=== PATIENT | female | born 1975 | race Caucasian/White ===

== ENCOUNTER 2018-10-02 11:12 | Emergency (ER) | payer SELFPAY ==
[2018-10-02 11:17] VITALS: RESP 18
--- NOTE | 2018-10-02 13:32 | ED PDOC ---
HPI: Hypertension/Hypotension Time Seen by Provider: 10/02/18 11:48 Chief Complaint (Nursing): High Blood Pressure Chief Complaint (Provider): my blood pressure was high History Per: [employer] (Conner from [employer]) History/Exam Limitations: no limitations Onset/Duration Of Symptoms: Days (1) Current Symptoms Are (Timing): Better Associated Symptoms: Dizziness. denies: Chest Pain, Dyspnea, Blurred Vision, Focal Weakness, Headache Quality Of Symptoms: Other (dizzy) Severity: Mild Exacerbating Factor(s): Pos: Recently Missed Doses Of Medication Additional Complaint(s): 43yo female hx ?HTN on enalapril but does not take regularly, rather only takes "when I have symptoms" presents now w mild dizziness, checked blood pressure on home device reading approx 190/105, took enalapril 10mg after and BP gradually improved. Denies headache, chest pain, SOB, edema, change urination or recent illness. Is also out of BP meds after today so requesting refill. Past Medical History Reviewed: Historical Data, Nursing Documentation, Vital Signs Vital Signs: Last Vital Signs Temp 98.5 F 10/02/18 11:16 Pulse 80 10/02/18 11:33 Resp 18 10/02/18 11:33 BP 154/99 H 10/02/18 11:33 Pulse Ox 99 10/02/18 11:33 - Medical History PMH: HTN Denies: Chronic Kidney Disease - Family History Family History: States: Unknown Family Hx - Social History Current smoker - smoking cessation education provided: No - Home Medications Home Medications: Ambulatory Orders Medication Instructions Recorded Ibuprofen [Motrin] 1 tab PO Q8 PRN #21 tab 11/22/15 Enalapril Maleate [Vasotec] 10 mg PO DAILY #15 tab 10/02/18 - Allergies Allergies/Adverse Reactions: Allergies Allergy/AdvReac Type Severity Reaction Status Date / Time No Known Allergies Allergy Verified 10/02/18 11:37 Review of Systems Constitutional: Negative for: Fever Cardiovascular: Negative for: Chest Pain, Palpitations Respiratory: Negative for: Cough, Shortness of Breath Gastrointestinal: Negative for: Vomiting Genitourinary Female: Negative for: Dysuria, Hematuria Musculoskeletal: Negative for: Neck Pain, Back Pain Skin: Negative for: Rash, Lesions Neurological: Positive for: Dizziness. Negative for: Weakness, Numbness, Change in Speech, Altered Mental Status Psych: Negative for: Psychosis Physical Exam - Reviewed Nursing Documentation Reviewed: Yes Vital Signs Reviewed: Yes - Physical Exam Appears: Positive for: Well, Non-toxic, No Acute Distress Head Exam: Positive for: ATRAUMATIC, NORMAL INSPECTION, NORMOCEPHALIC Skin: Positive for: Normal Color, Warm, DRY Eye Exam: Positive for: EOMI, Normal appearance, PERRL ENT: Positive for: Normal ENT Inspection Neck: Positive for: Normal, Painless ROM Cardiovascular/Chest: Positive for: Regular Rate, Rhythm Respiratory: Positive for: CNT, Normal Breath Sounds Gastrointestinal/Abdominal: Positive for: Normal Exam, Soft. Negative for: Tenderness Back: Positive for: Normal Inspection Extremity: Positive for: Normal ROM Neurologic/Psych: Positive for: Alert, Oriented. Negative for: Motor/Sensory Deficits - ECG ECG: Positive for: Interpreted By Me ECG Rhythm: Positive for: Normal ST Segment, Sinus Rhythm Rate: 69 O2 Sat by Pulse Oximetry: 99 Pulse Ox Interpretation: Normal Medical Decision Making Medical Decision Making: BP gradually improved in ED, remains non critical UDip reviewed also, preg neg Rx enalapril 10mg for 2 weeks and followp clinic for BP check, salt avoidance, indications for return ER discussed. Disposition - Clinical Impression Clinical Impression: Elevated blood pressure reading - Patient ED Disposition Is Patient to be Admitted: No Counseled Patient/Family Regarding: Studies Performed, Diagnosis, Need For Followup, Rx Given - Disposition Referrals: [facility] [Outside] Disposition: Routine/Home Disposition Time: 13:50 Condition: STABLE Additional Instructions: Followup with clinic for further testing and treatment. Return to ER for any worse or new symptoms. Prescriptions: Enalapril Maleate [Vasotec] 10 mg PO DAILY #15 tab Instructions: Hypertension (ED), High Blood Pressure in Adults Forms: [employer] (Faroese) Print Language: CHINESE
[2018-10-02 14:26] VITALS: BP 142/92; PULSE 74; TEMP 97.6; O2SAT 100
--- NOTE | 2018-10-02 19:09 | CARD ---
APPROVED REPORT Date of service: 10/02/2018 EKG Measurement Heart [id number] <Conclusion> Normal sinus rhythm Normal ECG
== END 2018-10-02 14:24 | disposition home or self-care (01) ==
LOC: H.ER 11:12
DX: I10 Essential (primary) hypertension (principal)

== ENCOUNTER 2018-10-26 18:58 | Emergency (ER) | payer SELFPAY ==
--- NOTE | 2018-10-26 20:34 | ED PDOC ---
HPI: Hypertension/Hypotension Time Seen by Provider: 10/26/18 20:07 Chief Complaint (Nursing): High Blood Pressure Chief Complaint (Provider): SOB/htn History Per: Patient ( ) History/Exam Limitations: no limitations Onset/Duration Of Symptoms: Days Current Symptoms Are (Timing): Still Present Associated Symptoms: Dyspnea Quality Of Symptoms: Rapid Heart Rate Severity: Mild Pain Scale Rating Of: 0 Additional Complaint(s): 43 y/o female c/o elevated blood pressure and shortness of breath for 3 weeks with a h/o htn. Pt reports having episodes of "hot flashes" and seeing "floaters". Pt was seen by a primary provider 3 days ago and started on Tenoretic 50-25mg daily. Pt was instructed by MD to stop taking enalapril that she was previously on. Pt continues to have intermittent episodes of shortness and breath and palpitations, that is what prompted ED visit. PT also reports self monitoring of blood pressure at home and reported it to be "high". Pt denies headache, nausea/ vomiting, weakness and fatigue. Past Medical History Reviewed: Historical Data, Nursing Documentation, Vital Signs Vital Signs: Last Vital Signs Temp 98.0 F 10/26/18 19:10 Pulse 68 10/26/18 19:10 Resp 18 10/26/18 19:10 BP 171/111 H 10/26/18 19:10 Pulse Ox 98 10/26/18 19:10 - Medical History PMH: HTN Denies: Chronic Kidney Disease - Surgical History Surgical History: No Surg Hx - Family History Family History: States: Unknown Family Hx - Home Medications Home Medications: Ambulatory Orders Medication Instructions Recorded Ibuprofen [Motrin] 1 tab PO Q8 PRN #21 tab 11/22/15 Enalapril Maleate [Vasotec] 10 mg PO DAILY #15 tab 10/02/18 - Allergies Allergies/Adverse Reactions: Allergies Allergy/AdvReac Type Severity Reaction Status Date / Time No Known Allergies Allergy Verified 10/26/18 19:10 Review of Systems ROS Statement: Except As Marked, All Systems Reviewed And Found Negative Cardiovascular: Positive for: Palpitations Respiratory: Positive for: Shortness of Breath Physical Exam - Reviewed Nursing Documentation Reviewed: Yes Vital Signs Reviewed: Yes - Physical Exam Appears: Positive for: Well, Non-toxic, No Acute Distress Head Exam: Positive for: ATRAUMATIC, NORMAL INSPECTION, NORMOCEPHALIC Skin: Positive for: Normal Color, Warm, DRY Eye Exam: Positive for: Normal appearance ENT: Positive for: Normal ENT Inspection Neck: Positive for: Normal, Painless ROM Cardiovascular/Chest: Positive for: Regular Rate, Rhythm Respiratory: Positive for: CNT, Normal Breath Sounds Pulses-Dorsalis Pedis (L): 2+ Pulses-Dorsalis Pedis (R): 2+ Pulses-Radial (L): 2+ Pulses-Radial (R): 2+ Gastrointestinal/Abdominal: Positive for: Normal Exam, Soft Back: Positive for: Normal Inspection Extremity: Positive for: Normal ROM, Other (no lower extremity edema ) Neurological/Psych: Positive for: Awake, Alert, Normal Tone - Laboratory Results Result Diagrams: 10/26/18 21:09 10/26/18 20:45 - ECG ECG: Positive for: Viewed By Me (viewed by ed attending) ECG Rhythm: Positive for: Sinus Rhythm O2 Sat by Pulse Oximetry: 98 - Radiology X-Ray: Viewed By Me X-Ray Interpretation: No Acute Disease - Progress ED Course And Treament: LABS: CBC, CMP, TROPONIN, TSH RAD: CXR DISPO: PT REPORTS FEELING BETTER, BLOOD PRESSURE IMPROVED WITH NO ADDITIONAL TX. PT INSTRUCTED TO CONTINUE BLOOD PRESSURE MED PRESCRIBED AND KEEP FOLLOW-UP APPT ON 11/07/2018 AT THE [facility] SCHEDULED. PT DISCHARGED TO HOME. PT AGREES TO PLAN AND HAS NO FURTHER QUESTIONS. Disposition - Clinical Impression Clinical Impression: Hypertension, Palpitations - Patient ED Disposition Is Patient to be Admitted: No - Disposition Disposition: Routine/Home Disposition Time: 22:21 Condition: IMPROVED Additional Instructions: Pt to maintain appointment to [facility] on 11/07/2018 Instructions: High Blood Pressure in Adults, Palpitations Print Language: HEBREW - POA Present On Arrival: None
[2018-10-26 21:10] LABS: BASO # 0.1 K/uL (0.0-0.2); BASO % 1.3 % (0.0-2.0); EOS # 0.2 K/uL (0.0-0.7); EOS % 3.3 % (0.0-4.0); HEMOGLOBIN 13.3 g/dL (12.0-16.0); LYMPH # 1.8 K/uL (1.0-4.3); LYMPH % 26.7 % (20.0-40.0); MEAN CELL VOLUME 80.2 fl (81.0-99.0); MEAN CORPUSCULAR HEMOGLOBIN 27.2 pg (27.0-31.0); MEAN CORPUSCULAR HGB CONC 33.9 g/dL (33.0-37.0); MEAN PLATELET VOLUME 7.3 fl (7.2-11.7); MONO # 0.5 K/uL (0.0-0.8); MONO % 7.7 % (0.0-10.0); NEUT # 4.2 K/uL (1.8-7.0); RBC 4.88 Mil/uL (3.80-5.20); RED CELL DISTRIBUTION WIDTH 13.9 % (11.5-14.5); WHITE BLOOD COUNT 6.8 K/uL (4.8-10.8)
[2018-10-26 21:16] LABS: ALT/SGPT 29 U/L (9-52); AST/SGOT 37 U/L (14-36); BLOOD UREA NITROGEN 13 mg/dl (7-17); CALCIUM 9.9 mg/dL (8.4-10.2); GFR NON-AFRICAN AMERICAN > 60
[2018-10-26 22:03] LABS: ALB/GLOB RATIO 1.2 (1.0-2.1); ALBUMIN 4.7 g/dL (3.5-5.0)
[2018-10-26 22:35] VITALS: BP 113/84; PULSE 60; RESP 14; TEMP 98.9; O2SAT 97
--- NOTE | 2018-10-27 08:20 | RAD ---
Date of service: 10/26/2018 HISTORY: sob COMPARISON: No prior. TECHNIQUE: Chest PA and lateral FINDINGS: LUNGS: No active pulmonary disease. Nonspecific increased anteroposterior chest diameter. PLEURA: No significant pleural effusion identified. No pneumothorax apparent. CARDIOVASCULAR: No aortic atherosclerotic calcification present. Normal cardiac size. No pulmonary vascular congestion. OSSEOUS STRUCTURES: No significant abnormalities. VISUALIZED UPPER ABDOMEN: Normal. OTHER FINDINGS: None. IMPRESSION: No interval acute cardiopulmonary disease appreciated.
== END 2018-10-26 22:37 | disposition home or self-care (01) ==
LOC: H.ER 18:58
DX: I10 Essential (primary) hypertension (principal); R00.2 Palpitations